=== PATIENT | male | born 1950 | race Caucasian/White ===

== ENCOUNTER 2018-02-10 05:59 | Inpatient (IN) | payer OTHER ==
[~2018-02-10] VITALS: Ht 172.7 cm; Wt 109.3 kg
[~2018-02-10 05:59] MED LIST: AMLO5TAB9 PO; ASPI-605 PO; FAMO20TA80 PO; LEVOBUNOLOL OP; LISI-607 PO; LORA10TA7 PO; PRAV20TA4 PO; TERA5CAP4 PO
[2018-02-10] MEDS ORDERED: BUPIVACAINE 0.75% DEXT-PF 2 ML AMPUL ONE (06:53)
[2018-02-10] MEDS ORDERED: FENTANYL PF 100MCG/2ML AMPUL ONE (06:53)
[2018-02-10] MEDS ORDERED: MORPHINE SULFATE/PF 10 MG/10ML (1MG/ML) AMPUL ONE (06:53)
[2018-02-10] MEDS ORDERED: BUPIVACAINE 0.5 % PF 150 MG/30 ML VIAL ONE (06:54)
[2018-02-10] MEDS ORDERED: CELECOXIB 100 MG CAPSULE ONE (07:05)
[2018-02-10] MEDS ORDERED: oxyCODONE HCL SR 10MG TAB.SR.12H PO ONE (07:05)
[2018-02-10] MEDS ORDERED: ACETAMINOPHEN 325 MG TABLET ONE (07:05)
[2018-02-10] MEDS ORDERED: MIDAZOLAM HCL 2 MG/2ML VIAL ONE (08:36)
[2018-02-10] MEDS ORDERED: BACITRACIN 50000 UNITS/VIAL ONE (08:39)
[2018-02-10] MEDS ORDERED: TRANEXAMIC ACID 3,000 MG in SODIUM CHLORIDE IRRIG SOLUTION 70 ML IR ONE (09:00)
[2018-02-10 12:15] VITALS: BP 111/69
--- NOTE | 2018-02-10 12:15 | NUR ---
PT ARRIVED TO THE FLOOR AT THIS TIME
[2018-02-10] MEDS ORDERED: DOCUSATE SODIUM 250 MG CAPSULE PO PRN (12:30)
[2018-02-10] MEDS ORDERED: ZOLPIDEM TARTRATE 5 MG TABLET PO PRN (12:30)
[2018-02-10] MEDS ORDERED: HYDROMORPHONE INJ 2 MG/ML DISP.SYRIN IM PRN (12:30)
[2018-02-10] MEDS ORDERED: oxyCODONE IR immediate release 5 MG PO PRN ×2 (12:30)
[2018-02-10] MEDS ORDERED: CLONIDINE HCL 0.1 MG TABLET PO PRN (12:30)
[2018-02-10] MEDS ORDERED: BISACODYL SUPP (10 MG) 10 MG/SUPP.RECT SUPP.RECT RC PRN (12:30)
[2018-02-10] MEDS ORDERED: MAGNESIUM HYDROXIDE 30 ML UDC PO PRN (12:30)
[2018-02-10] MEDS ORDERED: MENTHOL/CETYLPYRD (CEPACOL) 1 LOZ LOZENGE MM PRN (12:30)
[2018-02-10] MEDS ORDERED: NALOXONE HCL 0.4 MG/ML AMPUL IV PRN (12:30)
[2018-02-10] MEDS ORDERED: ACETAMINOPHEN 325 MG TABLET PO PRN ×2 (12:30→13:00)
[2018-02-10] MEDS ORDERED: MAG HYDROX/AL HYDROX/SIMETH 30 ML UDC PO PRN (12:30)
[2018-02-10] MEDS ORDERED: ONDANSETRON HCL/PF 4 MG/2 ML VIAL IVP PRN ×2 (12:30→13:00)
[2018-02-10] MEDS ORDERED: diphenhydrAMINE HCL 25 MG CAPSULE PO PRN (12:30)
[2018-02-10] MEDS ORDERED: SENNOSIDES 8.6 MG TABLET PO PRN (12:30)
--- NOTE | 2018-02-10 12:30 | NUR ---
ADMISSION NOTES PT RECEIVED FROM SURGERY FOR A LEFT TOTAL KNEE REVISION, HE IS IN BED AT LOWEST AND LOCKED POSITION WITH SIDE RAILS UPX2, A/O 4, BREATHING EVEN AND UNLABORED ON 2L VIA NC, MED-SURG, NOTED TO HAVE A ESPINAL IN PLACE THAT IS DRAINING, PT HAS A LEFT HAND 20 GAUGE THAT IS INFUSING WITH LR AT 100/HR, SAFETY PRECAUTIONS IN PLACE, CALL LIGHT WITHIN REACH, WILL MONITOR ACCORDINGLY
[2018-02-10 12:35] VITALS: BP 90/62
[2018-02-10] MEDS ORDERED: DOCUSATE SODIUM 100 MG CAPSULE PO SCH (13:00)
[2018-02-10] MEDS ORDERED: HYDROCODONE/APAP 5/325MG 1 EACH TABLET PO PRN (13:00)
--- NOTE | 2018-02-10 14:10 | NUR ---
RN NOTES PT WALKED WITH PT AT THIS TIME FOR 60 FT AND THEY STATED HE WAS MINIMAL ASSIST
[2018-02-10 16:00] VITALS: BP 105/56
[2018-02-10] MEDS ORDERED: ANCEF 1 GM/50 ML D5W IV SCH ×2 (17:00)
[2018-02-10] MEDS: DOCUSATE SODIUM 100 MG CAPSULE PO SCH (17:00)
[2018-02-10] MEDS: IV LR 1000 ML 1,000 ML IV PRN (17:44)
[2018-02-10] MEDS ORDERED: TERAZOSIN HCL 5 MG CAPSULE PO SCH (18:00)
--- NOTE | 2018-02-10 18:00 | NUR ---
RN NOTES RECIEVED TELEPHONE ORDERS FROM DR. PRATT REGARDING THE PATIENT STATING THAT HE WANTS TO KEEP THE ESPINAL IN UNTIL 6 AM TOMMORROW AND TO GIVE FLOMAX, WILL IMPLEMENT ORDERS AND MONITOR ACCORDINGLY
--- NOTE | 2018-02-10 18:57 | NUR ---
RN CLOSING NOTES PT IN BED AT LOWEST AND LOCKED POSITION WITH SIDE RAILS UP X2, A/O X4, BREATHING EVEN AND UNLABORED, NO PAIN OR DISTRESS NOTED AT THIS TIME, ESPINAL IN PLACE, IV PATENT AND INTACT, SAFETY PRECAUTIONS IN PLACE, CALL LIGHT WITHIN REACH, ALL NEEDS ATTENDED TO, WILL ENDORSE TO CALL WORKER RN FOR PUR[facility]
--- NOTE | 2018-02-10 19:15 | NUR ---
MS/RN OPENING NOTES PT WITH EYES CLOSED, OPENS EYES TO NAME. HOB ELEVATED, RESTING COMFORTABLY IN BED. ON ROOM AIR, BREATHING EVEN AND UNLABORED. DENIES PAIN, SOB AND N/V. S/P LEFT KNEE ARTHROPLASTY WITH IMMOBILIZER AND COOLING DEVICE IN PLACE. ELEVATED ON PILLOW. IV TO LFA PATENT AND INTACT RUNNING LR AT 100ML/HR. ESPINAL IN PLACE DRAINING TO GRAVITY. STATES + FLATUS BUT NO BM YET. BED IN LOW/LOCKED POSITION WITH CALL LIGHT IN REACH, BILATERAL UPPER SIDE RAILS UP X2. WILL CONTINUE TO MONITOR
[2018-02-10 20:00] VITALS: BP 109/63
[2018-02-10] MEDS: FAMOTIDINE (20 MG) 20 MG TABLET PO SCH (21:02)
[2018-02-10] MEDS: CLINDAMYCIN 900 MG in IV NS 0.9% 50 ML IV SCH (21:02)
[2018-02-10] MEDS ORDERED: TAMSULOSIN 0.4 MG CAP.SR.24H PO SCH ×2 (22:00)
[2018-02-11] MEDS: IV LR 1000 ML 1,000 ML IV PRN (06:01)
--- NOTE | 2018-02-11 06:52 | NUR ---
MS/RN CLOSING NOTES PT AWAKE, RESTING COMFORTABLY IN BED. ON ROOM AIR, BREATHING EVEN AND UNLABORED. DENIES SOB, AND N/V. WITH C/O PAIN TO LEFT KNEE BUT DOES NOT WANT PAIN MEDICATION. LEFT KNEE WRAPPED WITH IMMOBILIZER AND COOLING DEVICE IN PLACE. ELEVATED ON PILLOW. IV TO LFA PATENT AND INTACT RUNNING LR AT 100ML/HR. NO ACUTE DISTRESS. ESPINAL REMOVED, PT TOLERATED WELL. ASSISTED TO BRP WITH WALKER AND MINIMAL ASSIST. PT UNABLE TO VOID YET. TOLERATED VERY WELL. + FLATUS, NO BM YET. SLEPT WELL DURING SHIFT. ALL NEEDS MET. BED IN LOW/LOCKED POSITION WITH CALL LIGHT IN REACH, BILATERAL UPPER SIDE RAILS UP X2. WILL ENDORSE TO DAY SHIFT RN PURNIMA.
[2018-02-11 07:09] LABS: BASOPHILS % (AUTO) 0.3 % (0.0-2.0); EOSINOPHILS % (AUTO) 0.1 % (0.0-6.0); HEMATOCRIT 42 % (39-51); HEMOGLOBIN 14.6 g/dL (13.5-17.5); LYMPHOCYTES # (AUTO) 1.8 /CMM (0.8-4.8); MEAN CORPUSCULAR HGB CONC 35 g/dl (31.0-36.0); MEAN CORPUSCULAR VOLUME 94 fL (80-96); MONOCYTES # (AUTO) 1.2 /CMM (0.1-1.30); MONOCYTES % (AUTO) 10.2 % (2.0-12.0); NEUTROPHILS # (AUTO) 8.9 /CMM (1.8-8.9); NEUTROPHILS % (AUTO) 74.4 % (43.0-81.0); PLATELET COUNT (AUTO) 314 /CMM (150-450); RED BLOOD CELL COUNT(AUTO) 4.44 MIL/uL (4.5-6.0)
[2018-02-11 07:19] LABS: CALCIUM, SERUM 8.7 mg/dL (8.5-10.1); CREATININE 0.9 mg/dL (0.6-1.3); MAGNESIUM 1.8 mg/dL (1.8-2.4); PHOSPHORUS 3.3 mg/dL (2.5-4.9); POTASSIUM 3.8 mmol/L (3.5-5.1)
[2018-02-11 08:00] VITALS: BP 125/62
--- NOTE | 2018-02-11 08:00 | NUR ---
MS RN RECEIVED ON BED, AWAKE,ALERT,ORIENTED X4,NOT IN ANY FORM OF DISTRESS, RESPIRATIONS EVEN AND UNLABORED,NO SOB NOTED. S/P LEFT KNEE SURGERY W/ DRESSING DRY AND INTACT, ELEVATED W/ ONE PILLOW, DENIES PAIN AT THIAS TIME,WILL MONITOR PATIENT'S CONDITION.
[2018-02-11] MEDS: DOCUSATE SODIUM 100 MG CAPSULE PO SCH (08:16)
[2018-02-11] MEDS: CLINDAMYCIN 900 MG in IV NS 0.9% 50 ML IV SCH (08:16)
[2018-02-11] MEDS: FAMOTIDINE (20 MG) 20 MG TABLET PO SCH (08:19)
[2018-02-11] MEDS: AMLODIPINE BESYLATE 5 MG TABLET PO SCH ×2 (08:19→08:42)
[2018-02-11 08:42] VITALS: BP 125/62
[2018-02-11] MEDS ORDERED: FAMOTIDINE (20 MG) 20 MG TABLET PO SCH (09:00)
[2018-02-11] MEDS ORDERED: ASPIRIN EC 81 MG TABLET.DR PO SCH (09:00)
[2018-02-11] MEDS ORDERED: ASPIRIN 325 MG TABLET PO SCH (09:00)
[2018-02-11] MEDS ORDERED: LORATADINE 10 MG TABLET PO SCH (09:00)
[2018-02-11] MEDS ORDERED: LISINOPRIL (5MG) 5 MG TABLET PO SCH (09:00)
[2018-02-11] MEDS ORDERED: ATORVASTATIN 10 MG TABLET PO SCH (09:00)
--- NOTE | 2018-02-11 09:00 | NUR ---
MS MCLEAN BREAKFAST SERVED,DUE MEDS GIVEN,TOLERATED WELL.
[2018-02-11] MEDS ORDERED: ASPI-992 PO (10:26)
[2018-02-11] MEDS ORDERED: SENN-168 PO (10:26)
--- NOTE | 2018-02-11 11:30 | NUR ---
ms rn got up w/ pt 2x, tolerated well. was seen by Slime w/ order to go home post dressing changed by ortho.
--- NOTE | 2018-02-11 14:50 | NUR ---
ms rn dressing changed by ortho pa, patient ready to go home, discharge instruction given and understood.
--- NOTE | 2018-02-11 15:05 | NUR ---
ms rn patient went home accompanied by ,all needs attended.
== END 2018-02-11 15:00 | disposition home health service (06) | DRG 467 ==
LOC: DS 05:59 → MED 09:57
PROVIDERS: ADMIT Nurse Practitioner Acute Care; ATTEND Nurse Practitioner Acute Care
DX: T84.033A Mechanical loosening of internal left knee prosthetic joint, initial encounter (principal); D68.59 Other primary thrombophilia; Y83.9 Surgical procedure, unspecified as the cause of abnormal reaction of the patient, or of later complication, without mention of misadventure at the time of the procedure; Y92.009 Unspecified place in unspecified non-institutional (private) residence as the place of occurrence of the external cause; E78.5 Hyperlipidemia, unspecified; I10 Essential (primary) hypertension; M19.90 Unspecified osteoarthritis, unspecified site; K21.9 Gastro-esophageal reflux disease without esophagitis; J45.909 Unspecified asthma, uncomplicated; I25.10 Atherosclerotic heart disease of native coronary artery without angina pectoris; Z98.61 Coronary angioplasty status; Z90.49 Acquired absence of other specified parts of digestive tract; Z79.82 Long term (current) use of aspirin; Z79.899 Other long term (current) drug therapy; M17.12 Unilateral primary osteoarthritis, left knee; E66.9 Obesity, unspecified; Z68.36 Body mass index [BMI] 36.0-36.9, adult
CPT/HCPCS: 36415; 80048-TC; 80061-TC; 83735-TC; 84100-TC; 85025-TC; 86850-TC; 86921-TC; 87081-TC; 88300-TC; 97110-TC; 97116-TC; 97530-TC; 97760-TC; A4216; A4217; A6402; C1713; G0378; J0690; J1100; J1885; J2250; J2274; J2405; J2704; J3010; J3490; J7060; J7120; L1830